=== PATIENT | male | born 1970 | race Hispanic/Latino ===

== ENCOUNTER → 2025-07-13 | Outpatient (CLI) | payer OTHER ==
--- NOTE | 2025-07-14 07:56 | HMCIMG ---
EXAM: CT Cardiac calcium scoring. CLINICAL HISTORY: CAD screening. TECHNIQUE: Thin collimated axial CT cardiac images were obtained. A CT scan is done according to ALARA (As Low As Reasonably Achievable). CONTRAST: None. COMPARISON: None provided. FINDINGS: Calcium Score: VESSEL Number of lesions Volume mm3 Equi. Mass/mg Calcium score LM 2 13.2 --.-- 14.4 LAD 1 3.6 --.-- 6.3 LCX 0 00.00 00.00 00.00 RCA 9 3.1 --.-- 7.2 Total 12 19.9 --.-- 27.8 IMPRESSION: The calcium score is 27.8. This places the patient above 50th percentile in comparison to a group of patients asymptomatic for coronary artery disease with the same age and gender. This means that >50 % of males aged 50-54 have a calcium score that is lower than the patient's /[place]
== END | disposition home or self-care (01) ==
LOC: RAH 13:08
PROVIDERS: ATTEND Family Medicine
DX: Z13.6 Encounter for screening for cardiovascular disorders (principal); I25.10 Atherosclerotic heart disease of native coronary artery without angina pectoris; E78.00 Pure hypercholesterolemia, unspecified
CPT/HCPCS: 75571